=== PATIENT | female | born 1960 | race Caucasian/White ===

== ENCOUNTER 2023-04-03 02:35 | Emergency (ER) | payer MEDICARE ==
[~2023-04-03] VITALS: Ht 172.7 cm; Wt 42.6 kg
[~2023-04-03 02:35] MED LIST: ACYCLOVIR400 MG PO; AMITRIPTYLINE H25 MG PO; ASPIR 8181 MG PO; AZO CRANBERRY1 EAC1 PO; ESTRADIOL1 EAC1 TD; HYOPHEN TABLET1 EACH PO; MAXALT10 MG PO; OXYBUTYNIN CHLO15 MG PO; OXYCODONE HCL20 M1 PO; PRENATAL CAPLE1 EACH PO; PROMETHAZINE HC25 M1 PO; SONATA10 MG PO; VITAMIN D2000 UNIT PO; ZYRTEC10 MG PO
[2023-04-03 03:16] LABS: BASOPHILS 1.1 % (0-2); EOSINOPHILS 2.6 % (0-6); HEMATOCRIT 34.7 % (35.0-50.0); HEMOGLOBIN 11.6 g/dL (12.0-18.0); LYMPHOCYTES 19.3 % (24-44); MCHC 33.5 g/dl (30-36); MCV 92.4 fl (81-99); MONOCYTES 6.9 % (0-12); NEUTROPHILS 70.1 % (39-80); PLATELET COUNT 260 K/uL (140-440); RBC 3.76 M/ul (4.3-5.7); RDW 13.2 (10.5-15.0)
[2023-04-03 03:30] LABS: ANION GAP 7.4 (7-21); BILIRUBIN, TOTAL 0.3 ng/dL (0.2-1.0); BUN/CREATININE RATIO 20.27 (6.0-28.6); CALCIUM 9.4 mg/dL (8.5-10.1); CREATININE, SERUM 0.74 mg/dL (0.55-1.02); POTASSIUM 3.4 mmol/L (3.5-5.1)
[2023-04-03 04:20] LABS: BILIRUBIN, URINE NEGATIVE (negative); BLOOD/HGB, URINE NEGATIVE (Negative); KETONE, URINE NEGATIVE (Negative); LEUK ESTERASE, URINE NEGATIVE (negative); NITRITE, URINE NEGATIVE (negative); PH, URINE 6.5 (5-7)
[2023-04-03] MEDS ORDERED: HYDROCODON-ACE1 EA10 PO (05:02)
[2023-04-03] MEDS ORDERED: MAXALT10 MG PO (05:02)
[2023-04-03 05:40] VITALS: BP 106/72
== END 2023-04-03 05:40 | disposition home or self-care (01) ==
LOC: ED 02:35
PROVIDERS: Emergency Medicine
DX: R10.84 Generalized abdominal pain (principal); K62.89 Other specified diseases of anus and rectum; G43.909 Migraine, unspecified, not intractable, without status migrainosus; Z79.899 Other long term (current) drug therapy; Z88.8 Allergy status to other drugs, medicaments and biological substances
CPT/HCPCS: 36415; 74177; 80053; 81003; 83690; 85025; 96361; 96375; 99284-25; A9270; J1170; J2405; J7030; Q9967

== ENCOUNTER 2023-09-10 08:55 | Day surgery (SDC) | payer MEDICARE ==
[2023-09-03 10:38] VITALS: BP 103/73
[~2023-09-10] VITALS: Ht 172.7 cm; Wt 45.5 kg
[~2023-09-10 08:55] MED LIST changes: +ALPRAZOLAM1 MG PO; +AMITRIPTYLINE H50 MG PO; +AMPHETAMINE SAL20 MG PO; +ANUCORT-HC25 MG PR; +BUPIVACAINE HCL 0.25% 50 ML MDV ONE; +BUPROPION HCL200 MG PO; +CEFAZOLIN SODIUM 2 GM/20 ML SYR IV SCH; +CEPHALEXIN500 MG PO; +CLONAZEPAM1 MG PO; +CLONAZEPAM2 MG PO; +CLONIDINE HCL0.1 MG PO; +DEXAMETHASONE SOD PHOS 4 MG/ML VIAL ONE; +DULOXETINE HCL30 MG PO; +FAMOTIDINE 20 MG/ 2 ML VIAL ONE; +FENTANYL1 EAC1 TD; +GABAPENTIN300 MG PO; +HEParin SOD (PORCINE) 5,000 UNIT/0.5 ML SYR ONE; +HEParin SOD (PORCINE) 5,000 UNIT/0.5 ML SYR SUB-Q SCH; +HYDROCODON-ACE1 EA10 PO; +IBLOOD GLUCOSE TEST STRIP 1 EA TEST VI PRN; +KETOROLAC TROMETHAMINE 30 MG/ML VIAL ONE; +KLONOPIN1 MG PO; +LACTATED RINGER'S 1,000 ML IV ONE; +LACTATED RINGER'S 1,000 ML IV SCH; +LIDOCAINE 1% W/ EPI 1:200,000 30 ML SDV ONE; +LIDOCAINE HCL 1% 5 ML SDV INJ ONE; +LIDOCAINE35.44 GM TOP; +LIOTHYRONINE S25 MCG PO; +METOCLOPRAMIDE HCL 10 MG/2 ML SDV ONE; +MIDAZOLAM HCL 2 MG/2 ML VIAL ONE; +MIRTAZAPINE45 MG PO; +NALOXONE HCL4 MG NAS; +ONDANSETRON HCL4 MG PO; +ONDANSETRON ODT8 MG PO; +OXYBUTYNIN CHLOR5 M1 PO; +OXYCODONE HCL10 MG PO; +RISPERIDONE O0.25 MG PO; +RISPERIDONE1 MG PO; +RIZATRIPTAN10 MG PO; +SODIUM CHLORIDE 0.9% 200 ML IV ONE; +TRAZODONE HCL100 MG PO; +ZOLPIDEM TARTRA10 MG PO; +fentaNYL citrate 100 MCG/2 ML VIAL ONE; +iopamidoL 30 ML VIAL ONE; +ondansetron HCL 4 MG/2 ML VIAL ONE; +propofoL 200 MG/20 ML VIAL ONE
[2023-09-10 09:06] VITALS: BP 124/81
[2023-09-10] MEDS ORDERED: HYDROmorphone HCL 2 MG/ML VIAL ONE (09:26)
--- NOTE | 2023-09-10 09:28 | NUR ---
C/O PAIN 01/21 RAN OUT OF MED. [employer] SPECIALIST CHELE IN TO GIVE PAIN MED.
[2023-09-10] MEDS ORDERED: HYDROmorphone HCL 1 MG/ML SYR IV PRN ×2 (10:30→11:00)
[2023-09-10] MEDS ORDERED: NALOXONE HCL 0.4 MG SYR IV PRN ×2 (10:30→11:00)
[2023-09-10] MEDS ORDERED: PROCHLORPERAZINE EDISYLATE 10 MG/2 ML VIAL IV PRN ×2 (10:30→11:00)
[2023-09-10] MEDS ORDERED: fentaNYL citrate 50 MCG/ML SDV IV PRN (10:30)
[2023-09-10] MEDS ORDERED: IBLOOD GLUCOSE TEST STRIP 1 EA TEST VI PRN (10:30)
[2023-09-10] MEDS ORDERED: METOCLOPRAMIDE HCL 10 MG/2 ML SDV IV PRN (10:30)
[2023-09-10] MEDS ORDERED: droPERidol 5 MG/2 ML VIAL IV PRN (10:30)
[2023-09-10] MEDS ORDERED: ondansetron HCL 4 MG/2 ML VIAL IV PRN ×2 (10:30→11:00)
[2023-09-10] MEDS ORDERED: LACTATED RINGER'S 1,000 ML IV SCH (11:00)
[2023-09-10] MEDS ORDERED: HYDROCODONE/ACETA 5/325 TAB PO PRN (11:00)
--- NOTE | 2023-09-10 11:41 | NUR ---
09/10/23 1141 Nichole Duarte LE 1051: PATIENT ARRIVES IN PACU WITH ORAL AIRWAY IN PLACE. SHE IS UNRESPONSIVE TO MY VOICE. LE 1040: PATIENT OPENS HER EYES, SPONTANEOUSLY. SHE FOLLOWS DIRECTIONS TO OPEN HER MOUTH. ORAL AIRWAY IS REMOVED. PATIENT RETURNS TO RESTING QUIETLY, WITH HER EYES CLOSED. RESPIRATIONS ARE EVEN AND UNLABORED.
[2023-09-10 11:55] VITALS: BP 125/74
--- NOTE | 2023-09-10 11:59 | NUR ---
SLEEPY WATER GIVEN CALL LIGHT AT REACH.
[2023-09-10 12:50] VITALS: BP 109/70
--- NOTE | 2023-09-10 13:22 | OR ---
[facility] [address], [place] [address] Signed DATE OF OPERATION: 09/10/2023 SURGEON: Doris Mast MD PREOPERATIVE DIAGNOSIS: Squamous cell carcinoma of the anal canal. POSTOPERATIVE DIAGNOSIS: Squamous cell carcinoma of the anal canal. PROCEDURES: 1. Placement of right internal jugular Tmsl-J-Wilhllno. 2. Physician directed ultrasound. 3. Physician directed fluoroscopy. ESTIMATED BLOOD LOSS: Minimal. INDICATIONS: Linda is a 63-year-old cachectic lady, who has been diagnosed with squamous cell carcinoma of the anal canal. She is awaiting to undergo chemo and radiation therapy. She was asked to see me in my office as the local general surgeon for placement of her Dbmm-K-Brjheojq. I met Linda and her family and friends and we reviewed the above findings. I explained to them the nature of a Kqrv-K-Snmeulwl. 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 They understand this will be a day surgery and she can go home afterwards. There is risk to the procedure including but not limited to bleeding, infection, scarring, change in contour of the skin, pneumothorax requiring chest tube placement as well as catheter embolization requiring retrieval. Linda had expressed understanding and wished to proceed. DESCRIPTION OF PROCEDURE: I met with Linda in our preop area. After this, Linda was taken into the operating room and placed in the supine position under general LMA anesthesia. She was given preoperative antibiotics along with subcutaneous heparin. SCDs were utilized. She was prepped and draped in the usual sterile fashion. We used our ultrasound to easily find her right internal jugular vein and carotid artery. She is extremely cachectic and there was very little adipose tissue between the skin and her jugular vein. We made a small katie in her skin with an 11 blade knife. We went through with our needle and we watched it go directly into the vein with return of dark nonpulsatile venous blood. The wire was able to feed without any resistance whatsoever. We checked Electronically Signed By: DORIS MAST MD 09/10/23 1322 PATIENT NAME: LINDA BAR OPERATIVE REPORT DATE OF : 62 REPORT #: [id number] PHYSICIAN: DORIS MAST MD PCP: ADOLPH KRAMER MD REPORT IS CONFIDENTIAL AND NOT TO BE RELEASED WITHOUT AUTHORIZATION [facility] [address], [place] [address] Signed the position of the wire with the help of our fluoroscopy unit. After this, we made an oblique incision just below the clavicle on the right chest wall and developed the subcutaneous pocket. We then passed the dilator over the wire and checked the position of the dilator with the help of the fluoroscopy unit. The wire had been removed and the catheter was inserted up to 12 cm. After this, the catheter was tunneled underneath the skin across the clavicle and onto the right chest wall. The catheter was cut to length and the hub was placed on the catheter and the collar was pulled over the nipple on the hub. The port was able to draw and flush quite nicely with saline. The port was held in place with multiple interrupted 2-0 Prolene sutures. We checked the full length of the catheter with the help of the fluoroscopy unit and found to be in good position. The catheter was then filled with concentrated heparin. The wound was irrigated and suctioned out until clear. We closed the skin and dermis with interrupted 3-0 subcuticular Monocryl sutures on the chest wall and a 5-0 subcuticular Monocryl suture on the right neck. The skin edges were then reapproximated with a running 5-0 fast absorbing plain gut suture on both the chest wall and the right neck. Dry gauze and tape was then applied. Linda was awakened from her anesthesia, extubated in the OR, and taken to recovery room in stable condition. Currently, our portable chest x-ray is pending. Doris Mast MD ALB/MODL /[id number] cc: MD Dr. Arie Devries MD Robert C Quackenbush, MD Andrew L Bower, MD Juno Choe, MD, PH.D. Electronically Signed By: DORIS MAST MD 09/10/23 1322 PATIENT NAME: LINDA BAR OPERATIVE REPORT DATE OF : 62 REPORT #: [id number] PHYSICIAN: DORIS MAST MD PCP: ADOLPH KRAMER MD REPORT IS CONFIDENTIAL AND NOT TO BE RELEASED WITHOUT AUTHORIZATION [address] [address] Signed Copies: NICHOLAS FARRAR MD, ROBERT C MD BOWER, ANDREW L MD CHOE, JUNO MD ~ Electronically Signed By: DORIS MAST MD 09/10/23 1322 PATIENT NAME: LINDA BAR OPERATIVE REPORT DATE OF : 62 REPORT #: [id number] PHYSICIAN: DORIS MAST MD PCP: ADOLPH KRAMER MD REPORT IS CONFIDENTIAL AND NOT TO BE RELEASED WITHOUT AUTHORIZATION
--- NOTE | 2023-09-10 13:45 | NUR ---
1250 UP TO BSC VOIDS SMALL AMT. HAS INTERSTIAL CYSTIS. STATES SHE VOIDS SMALL AMTS STATES DOESNT NEED TO BE CATHED. FEEL READY TO GO HOME. FRIEND IN TO ASSIST HER.
== END 2023-09-10 12:55 | disposition home or self-care (01) ==
LOC: DS 08:55
PROVIDERS: ATTEND Colon & Rectal Surgery
PROC: 05HM33Z Insertion of Infusion Device into Right Internal Jugular Vein, Percutaneous Approach (ICD-10-PCS; 2023-09-10)
PROC: B513ZZA Fluoroscopy of Right Jugular Veins, Guidance (ICD-10-PCS; 2023-09-10)
PROC: 0JH63XZ Insertion of Tunneled Vascular Access Device into Chest Subcutaneous Tissue and Fascia, Percutaneous Approach (ICD-10-PCS; principal; 2023-09-10 10:30)
DX: C21.1 Malignant neoplasm of anal canal (principal); F50.00 Anorexia nervosa, unspecified; F33.1 Major depressive disorder, recurrent, moderate; N30.10 Interstitial cystitis (chronic) without hematuria; M81.0 Age-related osteoporosis without current pathological fracture; R39.89 Other symptoms and signs involving the genitourinary system; Z87.891 Personal history of nicotine dependence; Z79.899 Other long term (current) drug therapy; Z88.8 Allergy status to other drugs, medicaments and biological substances
CPT/HCPCS: 71045; 77001; J0690; J1100; J1170; J1644; J1885; J2250; J2405; J2704; J2765; J3010; J7121

== ENCOUNTER 2023-09-19 17:16 | Emergency (ER) | payer MEDICARE ==
[~2023-09-19] VITALS: Ht 170.2 cm; Wt 44.6 kg
[~2023-09-19 17:16] MED LIST changes: -BUPIVACAINE HCL 0.25% 50 ML MDV ONE; -CEFAZOLIN SODIUM 2 GM/20 ML SYR IV SCH; -DEXAMETHASONE SOD PHOS 4 MG/ML VIAL ONE; -FAMOTIDINE 20 MG/ 2 ML VIAL ONE; -HEParin SOD (PORCINE) 5,000 UNIT/0.5 ML SYR ONE; -HEParin SOD (PORCINE) 5,000 UNIT/0.5 ML SYR SUB-Q SCH; -IBLOOD GLUCOSE TEST STRIP 1 EA TEST VI PRN; -KETOROLAC TROMETHAMINE 30 MG/ML VIAL ONE; -LACTATED RINGER'S 1,000 ML IV ONE; -LACTATED RINGER'S 1,000 ML IV SCH; -LIDOCAINE 1% W/ EPI 1:200,000 30 ML SDV ONE; -LIDOCAINE HCL 1% 5 ML SDV INJ ONE; -METOCLOPRAMIDE HCL 10 MG/2 ML SDV ONE; -MIDAZOLAM HCL 2 MG/2 ML VIAL ONE; -SODIUM CHLORIDE 0.9% 200 ML IV ONE; -fentaNYL citrate 100 MCG/2 ML VIAL ONE; -iopamidoL 30 ML VIAL ONE; -ondansetron HCL 4 MG/2 ML VIAL ONE; -propofoL 200 MG/20 ML VIAL ONE
--- OUTSIDE RECORDS SUMMARY | 2023-09-19 17:18 | XMS ---
PreManage Notification: LINDA BAR Security Layer Out Events No recent Security Events currently on file CRITERIA MET - [facility] - [facility] - 2 Visits in 30 Days CARE PROVIDERS There are no care providers on record at this time. Amanda has no Care Guidelines for this patient. Brittany VISIT COUNT (12 MO.) [facility] TOTAL 5 NOTE: Visits indicate total known visits. ED/C VISIT TRACKING (12 MO.) 09/19/2023 17:16 [facility] TYPE: Emergency COMPLAINT: - FEVER 08/30/2023 11:03 [facility] TYPE: Emergency COMPLAINT: - CONFUSED, VAGINAL/RECTAL PAIN DIAGNOSES: - Allergy status to other drugs, medicaments and biological substances - Anxiety disorder, unspecified - Depression, unspecified - Hemorrhage of anus and rectum - Malignant neoplasm of rectum - Other long term acute care registered nurse (current) drug therapy 07/10/2023 15:35 [facility] TYPE: Emergency DIAGNOSES: - Disease of anus and rectum, unspecified - Unspecified intestinal obstruction, unspecified as to partial versus complete obstruction - Medical Problem (Major) - pain 07/06/2023 04:01 [facility] TYPE: Emergency COMPLAINT: - ALTERED 04/03/2023 02:36 [facility] TYPE: Emergency COMPLAINT: - ABD PAIN DIAGNOSES: - Allergy status to other drugs, medicaments and biological substances - Generalized abdominal pain - Migraine, unspecified, not intractable, without status migrainosus - Other retirement (current) drug therapy - Other specified diseases of anus and rectum INPATIENT VISIT TRACKING (12 MO.) 07/11/2023 15:34 [facility] TYPE: Surgery DIAGNOSES: - Disease of anus and rectum, unspecified - Unspecified intestinal obstruction, unspecified as to partial versus complete obstruction 07/10/2023 15:35 [facility] TYPE: Surgery DIAGNOSES: - Anxiety disorder, unspecified - Disease of anus and rectum, unspecified - Encounter for palliative care - Interstitial cystitis (chronic) without hematuria - Malignant neoplasm of anus, unspecified - Neoplasm related pain (acute) (chronic) - Other malaise - Other specified counseling - Unspecified intestinal obstruction, unspecified as to partial versus complete obstruction 07/08/2023 09:[address] [facility] TYPE: Medical Surgical COMPLAINT: - UTI, ALTERED LOC, COLORECTAL CANCE DIAGNOSES: - Allergy status to other drugs, medicaments and biological substances - Allergy status to other drugs, medicaments and biological substances - Anxiety disorder, unspecified - Anxiety disorder, unspecified - Depression, unspecified - Depression, unspecified - Do not resuscitate - Do not resuscitate - Hypokalemia - Hypokalemia - Interstitial cystitis (chronic) with hematuria - Interstitial cystitis (chronic) with hematuria - Malignant neoplasm of rectosigmoid junction - Malignant neoplasm of rectosigmoid junction - Migraine, unspecified, not intractable, without status migrainosus - Migraine, unspecified, not intractable, without status migrainosus - Unspecified Escherichia coli [E. coli] as the cause of diseases classified elsewhere - Unspecified Escherichia coli [E. coli] as the cause of diseases classified elsewhere - Urinary tract infection, site not specified [email or web address]
[2023-09-19] MEDS ORDERED: SODIUM CHLORIDE 0.9% 1,000 ML IV ONE (17:45)
[2023-09-19 17:50] LABS: BASOPHILS 0.2 % (0-2); EOSINOPHILS 4.6 % (0-6); HEMATOCRIT 27.9 % (35.0-50.0); HEMOGLOBIN 9.1 g/dL (12.0-18.0); LYMPHOCYTES 2.4 % (24-44); MCH 28.5 (27-36); MCHC 32.8 g/dl (30-36); MONOCYTES 1.3 % (0-12); NEUTROPHILS 91.5 % (39-80); PLATELET COUNT 342 K/uL (140-440); RDW 15.2 (10.5-15.0)
[2023-09-19] MEDS ORDERED: MAG-OXIDE400 MG PO (17:54)
[2023-09-19] MEDS ORDERED: FENTANYL1 EAC1 TD (17:55)
[2023-09-19 18:09] LABS: ALBUMIN 2.2 g/dL (3.4-5.0); ALBUMIN/GLOBULIN RATIO 0.54 (1.1-2.4); ANION GAP 11.5 (7-21); BILIRUBIN, TOTAL 0.4 ng/dL (0.2-1.0); BUN/CREATININE RATIO 21.05 (6.0-28.6); CALCIUM 9.6 mg/dL (8.5-10.1); CREATININE, SERUM 0.76 mg/dL (0.55-1.02); POTASSIUM 3.5 mmol/L (3.5-5.1); PROTEIN, TOTAL 6.3 g/dL (6.4-8.2)
[2023-09-19 18:12] LABS: LACTIC ACID, BLOOD 0.8 mmol/L (0.4-2.0)
[2023-09-19] MEDS ORDERED: CEFTRIAXONE/SODIUM CHLORIDE 1 GM/100 ML PIGGYBACK IV ONE (18:30)
[2023-09-19 20:41] LABS: BILIRUBIN, URINE NEGATIVE (negative); BLOOD/HGB, URINE NEGATIVE (Negative); KETONE, URINE NEGATIVE (Negative); LEUK ESTERASE, URINE NEGATIVE (negative); NITRITE, URINE POSITIVE (negative)
[2023-09-19 20:49] LABS: BACTERIA, URINE 2+ /hpf (negative); CRYSTALS, URINE AMORPHOUS PHOSPH 2+ (0-1+); EPITHELIAL CELLS, URINE 0 /lpf (0-1+); RED BLOOD CELLS, URINE 0-1 /hpf (0-5); WHITE BLOOD CELLS, URINE 0-1 /HPF (0-5)
[2023-09-19 20:50] LABS: CASTS, URINE NONE SEEN \\lpf; COLLECTION TYPE, URINE CATH; REFLEX CULTURE, URINE Yes (No)
[2023-09-19] MEDS ORDERED: MACROBID 100 M100 MG PO (21:05)
[2023-09-19] MEDS ORDERED: HEParin SOD (PORCINE) 500 UNIT/5 ML ML IV ONE (21:30)
[2023-09-19 21:32] VITALS: BP 97/63
[2023-09-21 08:23] LABS: PROCALCITONIN 0.11 ng/mL (())
[2023-09-25] MEDS ORDERED: URIBEL CAPSULE1 EACH PO (10:26)
[2023-09-25] MEDS ORDERED: ALENDRONATE SOD70 MG PO (10:27)
== END 2023-09-19 21:33 | disposition home or self-care (01) ==
LOC: ED 17:16
PROVIDERS: Emergency Medicine
DX: N39.0 Urinary tract infection, site not specified (principal); Z88.8 Allergy status to other drugs, medicaments and biological substances; Z79.899 Other long term (current) drug therapy; C21.0 Malignant neoplasm of anus, unspecified
CPT/HCPCS: 36415; 36591; 51701; 51798; 71045; 74177; 80053; 81001; 83605; 83615; 83690; 83735; 85007; 85025; 86140; 87040; 87077; 87088; 87186; 99284-25; J0696; J7030; Q9967

== ENCOUNTER 2024-03-17 07:40 | Day surgery (SDC) | payer MEDICARE ==
[2024-03-15 14:36] VITALS: BP 113/80
[~2024-03-17] VITALS: Ht 170.2 cm; Wt 59.1 kg
[~2024-03-17 07:40] MED LIST changes: +ALENDRONATE SOD70 MG PO; +CEFAZOLIN SODIUM 2 GM/20 ML SYR IV SCH; +ENOXAPARIN SODIUM 40 MG/0.4 ML SYR SUB-Q SCH; +IBLOOD GLUCOSE TEST STRIP 1 EA TEST VI PRN; +LACTATED RINGER'S 1,000 ML IV SCH; +LIDOCAINE HCL 1% 5 ML SDV INJ ONE; +MACROBID 100 M100 MG PO; +MAG-OXIDE400 MG PO; +URIBEL CAPSULE1 EACH PO
[2024-03-17 07:52] VITALS: BP 133/85
[2024-03-17] MEDS ORDERED: LIDOCAINE 1% W/ EPI 1:200,000 30 ML SDV ONE (09:04)
[2024-03-17] MEDS ORDERED: BUPIVACAINE HCL 0.25% 50 ML MDV ONE (09:04)
[2024-03-17] MEDS ORDERED: propofoL 200 MG/20 ML VIAL ONE (09:13)
[2024-03-17] MEDS ORDERED: fentaNYL citrate 100 MCG/2 ML VIAL ONE (09:13)
[2024-03-17] MEDS ORDERED: LIDOCAINE HCL 2% 5 ML SDV ONE (09:13)
[2024-03-17] MEDS ORDERED: ondansetron HCL 4 MG/2 ML VIAL ONE (09:15)
[2024-03-17] MEDS ORDERED: KETOROLAC TROMETHAMINE 30 MG/ML VIAL ONE (10:01)
[2024-03-17] MEDS ORDERED: NALOXONE HCL 0.4 MG SYR IV PRN (10:15)
[2024-03-17] MEDS ORDERED: HYDROmorphone HCL 1 MG/ML SYR IV PRN (10:15)
[2024-03-17] MEDS ORDERED: PROCHLORPERAZINE EDISYLATE 10 MG/2 ML VIAL IV PRN (10:15)
[2024-03-17] MEDS ORDERED: ondansetron HCL 4 MG/2 ML VIAL IV PRN (10:15)
--- NOTE | 2024-03-17 10:27 | NUR ---
03/17/24 Rogelio7 Georgina Charles 1011- PT ARRIVES TO THE PACU WITH A NATURAL AIRWAY ON 6L OF O2 VIA MASK. BREATHING IS EVEN AND UNLABORED. ALL MONITORS PUT IN PLACE. VSS. PT IS IN SEMI FOWLERS POSITION AND LR INFUSING IN HER R FOREARM. PT WAKES TO VERBAL STIMULI AND DENIES PAIN AND NAUSEA. PT EASILY FALLS BACK TO SLEEP. SURGICAL SITE IS CLEAN, DRY AND INTACT. 1014- O2 TURNED OFF AND REMOVED. PT EASILY WAKES TO VERBAL STIMULI. ICE PACK APPLIED TO SURGICAL SITE.
[2024-03-17] MEDS ORDERED: OXYCODONE HCL 5 MG TAB PO PRN (10:30)
[2024-03-17 10:46] VITALS: BP 131/72
--- NOTE | 2024-03-17 11:00 | OR ---
[facility] [address], [place] [address] Signed DATE OF OPERATION: 03/17/2024 SURGEON: Doris Mast MD PREOPERATIVE DIAGNOSES: 1. Right internal jugular Jwxn-V-Cpvhryky. 2. Squamous cell carcinoma of the anus. POSTOPERATIVE DIAGNOSES: 1. Right internal jugular Rqin-J-Xawroheb. 2. Squamous cell carcinoma of the anus. PROCEDURE: Removal of right IJ Dzlo-O-Pxxfvoqg. ESTIMATED BLOOD LOSS: None. 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 She was diagnosed and treated for her squamous cell carcinoma of the anus. She has a left lower quadrant loop sigmoid colostomy. She has been doing great and has put on 30 pounds. She came back to the office and requested that the right internal jugular Oicx-U-Xvkzmldy be removed. She always comes with her friend, Cristal. She looks and feels much better. She said all the pain is gone. She said it has been wonderful. In the office, I explained to Linda the nature of the Rqyt-J-Vnepxtly removal. She understands this will be a day surgery. There is risk including, but not limited to bleeding, infection, scarring, change in contour of the skin as well as catheter embolization requiring retrieval. She had expressed understanding and wished to proceed. DESCRIPTION OF PROCEDURE: I met with Linda and her friend, Cristal, as well as our preop nurse. Linda and I both identified the Hjam-T-Uqjeoazk. We marked it appropriately. After this, Linda was taken in the operating room and placed in the supine position under monitored anesthesia care. She was given preoperative antibiotics along with subcutaneous Lovenox. SCDs were utilized. She was prepped and draped in the usual sterile fashion. Local anesthetic was copiously injected around underneath her Zpja-C-Ulmuwdwe hub. Her previous oblique incision on the right chest wall was opened sharply with a 15 blade knife. We went down around the hub and the pseudo capsule with the help of the cautery. The Prolene sutures were carefully divided with the 15 blade knife. We dissected the Electronically Signed By: DORIS MAST MD 03/17/24 [facility] PATIENT NAME: LINDA BAR OPERATIVE REPORT DATE OF : 62 REPORT #: [id number] PHYSICIAN: DORIS MAST MD PCP: SHANNAN KRAMER MD REPORT IS CONFIDENTIAL AND NOT TO BE RELEASED WITHOUT AUTHORIZATION [facility] [address], [place] [address] Signed catheter at over top of the clavicle. The catheter and hub were able to be retrieved in one piece without any resistance whatsoever. The entire catheter was intact. We used a 2-0 pursestring Prolene suture around the catheter as it exited underneath the skin near the clavicle. That was tied down to close the tunnel primarily. After this, the wound was irrigated and suctioned out until clear. We closed the wound with interrupted 3-0 subcuticular Monocryl sutures. The skin edges were reapproximated with a running 5-0 fast absorbing plain gut suture. Dry gauze and tape were then applied. Linda was then transferred over to her hospital bed and taken into recovery room in stable condition. Doris Mast MD ALB/MODL /[id number] cc: MD Shannan Gutiérrez MD Dr. Luay Ailabouni Copies: DORIS MAST MD ~ Electronically Signed By: DORIS MAST MD 03/17/24 1100 PATIENT NAME: LINDA BAR OPERATIVE REPORT DATE OF : 62 REPORT #: [id number] PHYSICIAN: DORIS MAST MD PCP: SHANNAN KRAMER MD REPORT IS CONFIDENTIAL AND NOT TO BE RELEASED WITHOUT AUTHORIZATION
== END 2024-03-17 11:00 | disposition home or self-care (01) ==
LOC: DS 07:40
PROVIDERS: ATTEND Colon & Rectal Surgery
PROC: 0JPT0XZ Removal of Tunneled Vascular Access Device from Trunk Subcutaneous Tissue and Fascia, Open Approach (ICD-10-PCS; principal; 2024-03-17 09:00)
DX: C21.0 Malignant neoplasm of anus, unspecified (principal); M81.0 Age-related osteoporosis without current pathological fracture; Z93.3 Colostomy status; Z79.899 Other long term (current) drug therapy; Z88.8 Allergy status to other drugs, medicaments and biological substances
CPT/HCPCS: 00532; J0690; J1650; J1885; J2003; J2405; J2704; J3010; J7121

== ENCOUNTER 2024-10-18 07:22 | Emergency (ER) | payer MEDICARE ==
[~2024-10-18] VITALS: Ht 170.2 cm; Wt 42.5 kg
[~2024-10-18 07:22] MED LIST changes: -CEFAZOLIN SODIUM 2 GM/20 ML SYR IV SCH; -ENOXAPARIN SODIUM 40 MG/0.4 ML SYR SUB-Q SCH; -IBLOOD GLUCOSE TEST STRIP 1 EA TEST VI PRN; -LACTATED RINGER'S 1,000 ML IV SCH; -LIDOCAINE HCL 1% 5 ML SDV INJ ONE
[2024-10-18] MEDS ORDERED: FENTANYL1 EACH TD (07:45)
[2024-10-18] MEDS ORDERED: PERCOCET 5-3251 EACH PO (07:46)
[2024-10-18] MEDS ORDERED: PHENAZOPYRIDIN200 MG PO (07:46)
[2024-10-18] MEDS ORDERED: SODIUM CHLORIDE 0.9% 500 ML IV PRN (08:00)
[2024-10-18 08:02] LABS: BASOPHILS 0.6 % (0.1-1.2); EOSINOPHILS 0.5 % (0.7-5.8); LYMPHOCYTES 6.1 % (19.3-51.7); MCH 29.5 PG (25.6-32.2); MCHC 32.0 g/dL (32.2-35.5); MCV 92.1 fL (79.4-94.8); MONOCYTES 6.5 % (4.7-12.5); NEUTROPHILS 86.1 % (34.0-71.1); RBC 3.56 M/uL (3.93-5.22)
[2024-10-18 08:15] LABS: INR 1.13 (0.80-1.30); PROTIME 13.7 Sec (11.2-14.2)
[2024-10-18 08:22] LABS: ALT (SGPT) 12.0 U/L (14-59); AST (SGOT) 10.0 U/L (15-37); GLOMERULAR FILTRATION RATE,EST 101.0 mL/min (>60); PROTEIN, TOTAL 6.7 g/dL (6.4-8.2); UREA NITROGEN 9.0 mg/dL (7-18)
[2024-10-18 08:38] LABS: ABO A; RH POSITIVE
[2024-10-18 08:39] LABS: ANTIBODY SCREEN NEGATIVE
[2024-10-18 09:48] VITALS: BP 95/64
== END 2024-10-18 09:48 | disposition home or self-care (01) ==
LOC: ED 07:22
PROVIDERS: Emergency Medicine
DX: K60.40 Rectal fistula, unspecified (principal); N82.8 Other female genital tract fistulae; C19 Malignant neoplasm of rectosigmoid junction; Z88.8 Allergy status to other drugs, medicaments and biological substances; Z79.899 Other long term (current) drug therapy
CPT/HCPCS: 36415; 74177; 80053; 85025; 85610; 85730; 86850; 86900; 86901; 99284-25; Q9967